=== PATIENT | female | born 1990 | race African-American/Black ===

== ENCOUNTER 2017-03-21 12:01 | Emergency (ER) | payer BC ==
[~2017-03-21] VITALS: Ht 154.9 cm; Wt 77.6 kg
[2017-03-21] MEDS ORDERED: CLONIDINE HCL0.1 MG PO (12:17)
[2017-03-21] MEDS ORDERED: ZOFRAN4 MG PO (12:17)
[2017-03-21] MEDS ORDERED: LOPERAMIDE2 MG PO (12:17)
[2017-03-21 12:48] VITALS: BP 151/100
== END 2017-03-21 12:49 | disposition home or self-care (01) ==
LOC: EME 12:01
DX: F11.23 Opioid dependence with withdrawal (principal); R11.2 Nausea with vomiting, unspecified; F17.200 Nicotine dependence, unspecified, uncomplicated
CPT/HCPCS: 99281; 99284